=== PATIENT | female | born 1960 | race Caucasian/White ===

== ENCOUNTER 2020-04-27 06:26 | Inpatient (IN) ==
[2020-04-27] MEDS ORDERED: FUROSEMIDE 40 MG/4 ML VIAL IV STA (07:22)
[2020-04-27 07:56] LABS: Bilirubin,Total 0.7 MG/DL (0.2-1.0); Calcium 8.1 MG/DL (8.5-10.1); Potassium 3.4 MMOL/L (3.5-5.1); Total Protein 6.7 G/DL (6.4-8.3)
[2020-04-27 08:05] LABS: Ferritin 737.5 ng/ml (8-252)
[2020-04-27] MEDS: ZINC GLUCONATE 50 MG TABLET PO SCH (08:46)
[2020-04-27] MEDS: CHOLECALCIFEROL 1,000 UNIT TABLET PO SCH (08:46)
[2020-04-27] MEDS: ASCORBIC ACID 500 MG TABLET PO SCH ×2 (08:46→20:41)
[2020-04-27] MEDS: cefTRIAXone 1,000 MG in SYRINGE 1 EACH IV SCH (08:47)
[2020-04-27] MEDS: FAMOTIDINE 20 MG/2 ML VIAL IV SCH ×2 (08:48→20:42)
[2020-04-27] MEDS: ENOXAPARIN 60 MG/0.6 ML SYRINGE SUBCUT SCH ×2 (08:49→21:18)
[2020-04-27] MEDS: AZITHROMYCIN INJ 500 MG in SODIUM CHLORIDE 0.9% 250 ML IV SCH (08:51)
[2020-04-27] MEDS: methylPREDNISolone SOD SUC 40 MG/1 ML VIAL IV SCH ×3 (08:58→20:55)
[2020-04-27 09:12] LABS: ABG Base Excess 1.8 MMOL/L (-2.5-2.5); ABG Oxygen Saturation 98.3 % (95-100); ABG PCO2 44.5 MM HG (35-48); ABG PH 7.393 (7.35-7.45); ABG TCO2 23.7 MMOL/L (23-27)
[2020-04-27] MEDS ORDERED: MAGNESIUM SULF RIDER 4 GM in PREMIX 1 EACH IV PRN (10:20)
[2020-04-27] MEDS ORDERED: MAGNESIUM SULF RIDER 2 GM in PREMIX 1 EACH IV PRN (10:20)
[2020-04-27 13:51] LABS: Basophils % 0.1 % (0.0-0.8); Hematocrit 37.1 VOL% (35.7-47.0); Hemoglobin 12.4 GM/DL (12.0-16.0); Immature Granulocytes % 1.6 %; Immature Granulocytes Absolute 0.19 #; Lymphocytes % 8.1 % (21.3-54.2); Mean Corpuscular HGB Conc 33.4 GM/DL (32-36); Mean Corpuscular Volume 87.1 FL (87-102); Mean Platelet Volume 9.2 FL (9.6-12.0); Neutrophils % 87.2 % (38.7-73.9); Platelet Count 204 T/CUMM (130-400); Red Blood Count 4.26 MC/CUMM (3.8-5.5); Red Cell Distribution Width 13.4 % (9.3-17.3); White Blood Count 12.2 T/CUMM (4-12)
[2020-04-27] MEDS: POTASSIUM CHLORIDE 20 MEQ/15 ML UDCUP PER TUBE PRN ×3 (14:17→20:41)
[2020-04-28] MEDS: methylPREDNISolone SOD SUC 40 MG/1 ML VIAL IV SCH ×4 (03:05→20:52)
[2020-04-28 04:17] LABS: Basophils % 0.1 % (0.0-0.8); Hematocrit 37.2 VOL% (35.7-47.0); Hemoglobin 12.5 GM/DL (12.0-16.0); Immature Granulocytes % 1.5 %; Immature Granulocytes Absolute 0.15 #; Lymphocytes % 9.6 % (21.3-54.2); Mean Corpuscular HGB Conc 33.6 GM/DL (32-36); Mean Corpuscular Volume 87.7 FL (87-102); Mean Platelet Volume 9.7 FL (9.6-12.0); Monocytes % 3.4 % (1.7-12.7); Neutrophils % 85.4 % (38.7-73.9); Platelet Count 231 T/CUMM (130-400); Red Blood Count 4.24 MC/CUMM (3.8-5.5); Red Cell Distribution Width 13.3 % (9.3-17.3); White Blood Count 9.9 T/CUMM (4-12)
[2020-04-28 04:18] LABS: Albumin 2.7 G/DL (3.4-5.0); Bilirubin,Total 0.8 MG/DL (0.2-1.0); Calcium 8.2 MG/DL (8.5-10.1); Ferritin 684.9 ng/ml (8-252); Osmolality,Calculated 291.8 MOS/KG (273-304); Potassium 3.8 MMOL/L (3.5-5.1); Total Protein 6.3 G/DL (6.4-8.3)
[2020-04-28 04:29] LABS: ABG Base Excess 2.6 MMOL/L (-2.5-2.5); ABG Oxygen Saturation 95.9 % (95-100); ABG PCO2 36.1 MM HG (35-48); ABG PH 7.476 (7.35-7.45); ABG PO2 78.4 MM HG (80-95); ABG TCO2 27.1 MMOL/L (23-27); Allen Test Positive; Pt O2 Delivery Device Ventilator
[2020-04-28] MEDS: FAMOTIDINE 20 MG/2 ML VIAL IV SCH ×2 (07:19→20:53)
[2020-04-28] MEDS: cefTRIAXone 1,000 MG in SYRINGE 1 EACH IV SCH (07:19)
[2020-04-28] MEDS: AZITHROMYCIN INJ 500 MG in SODIUM CHLORIDE 0.9% 250 ML IV SCH (07:23)
[2020-04-28] MEDS: POTASSIUM CHLORIDE 20 MEQ/15 ML UDCUP PER TUBE PRN (07:28)
[2020-04-28] MEDS: ENOXAPARIN 60 MG/0.6 ML SYRINGE SUBCUT SCH ×2 (07:30→20:53)
[2020-04-28] MEDS: CHOLECALCIFEROL 1,000 UNIT TABLET PO SCH (08:03)
[2020-04-28] MEDS: ASCORBIC ACID 500 MG TABLET PO SCH ×2 (08:03→20:55)
[2020-04-28] MEDS: ZINC GLUCONATE 50 MG TABLET PO SCH (08:03)
[2020-04-28] MEDS ORDERED: GLUCAGON 1 MG VIAL IM PRN (08:54)
[2020-04-28] MEDS ORDERED: DEXTROSE 50% 25 GM/50 ML VIAL IV PRN (08:54)
[2020-04-28] MEDS: INSULIN REGULAR 100 UNIT/ML SUBCUT SCH ×2 (12:07→18:09)
[2020-04-28] MEDS: MIDAZOLAM 100 MG in SODIUM CHLORIDE 0.9% 80 ML IV PRN (20:47)
[2020-04-28] MEDS: ALBUTEROL INHALER 18 GM INH SCH (22:17)
[2020-04-29] MEDS: INSULIN REGULAR 100 UNIT/ML SUBCUT SCH ×4 (00:34→17:53)
[2020-04-29] MEDS: ALBUTEROL INHALER 18 GM INH SCH ×4 (00:56→20:15)
[2020-04-29] MEDS: methylPREDNISolone SOD SUC 40 MG/1 ML VIAL IV SCH ×4 (02:41→21:37)
[2020-04-29 04:04] LABS: Basophils % 0.2 % (0.0-0.8); Hematocrit 37.5 VOL% (35.7-47.0); Hemoglobin 12.5 GM/DL (12.0-16.0); Immature Granulocytes % 3.2 %; Immature Granulocytes Absolute 0.27 #; Lymphocytes # 1.1 10*3/uL (1.4-4.0); Lymphocytes % 12.7 % (21.3-54.2); Mean Corpuscular HGB Conc 33.3 GM/DL (32-36); Mean Corpuscular Volume 87.6 FL (87-102); Mean Platelet Volume 10.2 FL (9.6-12.0); Monocytes % 4.8 % (1.7-12.7); Neutrophils % 79.1 % (38.7-73.9); Platelet Count 227 T/CUMM (130-400); Red Blood Count 4.28 MC/CUMM (3.8-5.5); Red Cell Distribution Width 13.1 % (9.3-17.3); White Blood Count 8.4 T/CUMM (4-12)
[2020-04-29 04:08] LABS: Allen Test Positive; Pt O2 Delivery Device Ventilator
[2020-04-29 04:16] LABS: ABG Base Excess 2.7 MMOL/L (-2.5-2.5); ABG HCO3 26.8 MMOL/L (20-26); ABG Oxygen Saturation 99.3 % (95-100); ABG PCO2 41.3 MM HG (35-48); ABG PH 7.427 (7.35-7.45); ABG TCO2 23.9 MMOL/L (23-27)
[2020-04-29 04:39] LABS: Calcium 8.1 MG/DL (8.5-10.1); Osmolality,Calculated 294.8 MOS/KG (273-304); Potassium 5.1 MMOL/L (3.5-5.1)
[2020-04-29 04:40] LABS: Band Neutrophils 1 % (0-10); Lymphocytes 8 % (20-55); Metamyelocytes 1 %; Segmented Neutrophils 89 % (50-85); Total Cells Counted 100
[2020-04-29 04:41] LABS: Platelet Estimate Normal
[2020-04-29] MEDS: MIDAZOLAM 100 MG in SODIUM CHLORIDE 0.9% 80 ML IV PRN (07:50)
[2020-04-29] MEDS: FAMOTIDINE 20 MG/2 ML VIAL IV SCH ×2 (08:10→21:35)
[2020-04-29] MEDS: cefTRIAXone 1,000 MG in SYRINGE 1 EACH IV SCH (08:11)
[2020-04-29] MEDS: AZITHROMYCIN INJ 500 MG in SODIUM CHLORIDE 0.9% 250 ML IV SCH (08:12)
[2020-04-29] MEDS: ENOXAPARIN 60 MG/0.6 ML SYRINGE SUBCUT SCH ×2 (08:14→21:35)
[2020-04-29] MEDS: CHOLECALCIFEROL 1,000 UNIT TABLET PO SCH (08:15)
[2020-04-29] MEDS: ZINC GLUCONATE 50 MG TABLET PO SCH (08:15)
[2020-04-29] MEDS: ASCORBIC ACID 500 MG TABLET PO SCH ×2 (08:15→21:35)
[2020-04-29] MEDS ORDERED: INFLUENZA VIRUS VACCINE 0.5 ML SYRINGE IM ONE (09:42)
[2020-04-29] MEDS: amLODIPine 10 MG TABLET PER TUBE SCH (17:53)
[2020-04-30] MEDS: INSULIN REGULAR 100 UNIT/ML SUBCUT SCH ×4 (00:30→17:56)
[2020-04-30] MEDS: ALBUTEROL INHALER 18 GM INH SCH ×4 (01:13→18:03)
[2020-04-30] MEDS: methylPREDNISolone SOD SUC 40 MG/1 ML VIAL IV SCH ×4 (02:19→20:52)
[2020-04-30 03:19] LABS: ABG Base Excess 3.3 MMOL/L (-2.5-2.5); ABG HCO3 26.7 MMOL/L (20-26); ABG PCO2 36.3 MM HG (35-48); ABG PH 7.484 (7.35-7.45); ABG PO2 123.2 MM HG (80-95); ABG TCO2 27.8 MMOL/L (23-27); Allen Test Positive; Pt O2 Delivery Device Ventilator
[2020-04-30 05:56] LABS: Basophils % 0.5 % (0.0-0.8); Hematocrit 38.4 VOL% (35.7-47.0); Immature Granulocytes % 5.3 %; Lymphocytes % 13.7 % (21.3-54.2); Mean Corpuscular HGB Conc 33.9 GM/DL (32-36); Mean Corpuscular Volume 85.3 FL (87-102); Mean Platelet Volume 9.3 FL (9.6-12.0); Monocytes % 5.3 % (1.7-12.7); Neutrophils % 75.2 % (38.7-73.9); Platelet Count 276 T/CUMM (130-400); Red Cell Distribution Width 12.7 % (9.3-17.3); White Blood Count 7.5 T/CUMM (4-12)
[2020-04-30 06:29] LABS: Calcium 8.2 MG/DL (8.5-10.1); Osmolality,Calculated 297.7 MOS/KG (273-304); Potassium 3.7 MMOL/L (3.5-5.1)
[2020-04-30 07:55] LABS: Anisocytosis 1+; Band Neutrophils 7 % (0-10); Lymphocytes 12 % (20-55); Platelet Estimate Normal; Segmented Neutrophils 75 % (50-85); Smudge Cells Few; Total Cells Counted 100
[2020-04-30] MEDS: amLODIPine 10 MG TABLET PER TUBE SCH (08:56)
[2020-04-30] MEDS: CHOLECALCIFEROL 1,000 UNIT TABLET PO SCH (08:57)
[2020-04-30] MEDS: FAMOTIDINE 20 MG/2 ML VIAL IV SCH ×2 (08:57→20:52)
[2020-04-30] MEDS: ENOXAPARIN 60 MG/0.6 ML SYRINGE SUBCUT SCH ×2 (08:57→20:52)
[2020-04-30] MEDS: ZINC GLUCONATE 50 MG TABLET PO SCH (08:57)
[2020-04-30] MEDS: ASCORBIC ACID 500 MG TABLET PO SCH ×2 (08:57→20:52)
[2020-04-30] MEDS: cefTRIAXone 1,000 MG in SYRINGE 1 EACH IV SCH (08:58)
[2020-04-30] MEDS: AZITHROMYCIN INJ 500 MG in SODIUM CHLORIDE 0.9% 250 ML IV SCH (08:59)
[2020-04-30] MEDS ORDERED: INFLUENZA VIRUS VACCINE 0.5 ML SYRINGE IM ONE (09:00)
[2020-04-30] MEDS: lisinopriL 5 MG TABLET PO SCH (13:01)
[2020-05-01] MEDS: ALBUTEROL INHALER 18 GM INH SCH ×4 (00:30→21:33)
[2020-05-01] MEDS: INSULIN REGULAR 100 UNIT/ML SUBCUT SCH ×4 (00:30→18:25)
[2020-05-01] MEDS: methylPREDNISolone SOD SUC 40 MG/1 ML VIAL IV SCH ×4 (03:12→20:45)
[2020-05-01 04:47] LABS: Basophils % 0.1 % (0.0-0.8); Hematocrit 36.4 VOL% (35.7-47.0); Hemoglobin 12.4 GM/DL (12.0-16.0); Immature Granulocytes % 5.7 %; Immature Granulocytes Absolute 0.41 #; Lymphocytes # 0.6 10*3/uL (1.4-4.0); Lymphocytes % 8.6 % (21.3-54.2); Mean Corpuscular HGB Conc 34.1 GM/DL (32-36); Mean Corpuscular Volume 85.2 FL (87-102); Mean Platelet Volume 9.4 FL (9.6-12.0); Monocytes % 5.5 % (1.7-12.7); Neutrophils % 80.1 % (38.7-73.9); Platelet Count 258 T/CUMM (130-400); Red Blood Count 4.27 MC/CUMM (3.8-5.5); Red Cell Distribution Width 12.5 % (9.3-17.3); White Blood Count 7.3 T/CUMM (4-12)
[2020-05-01 05:08] LABS: ABG Base Excess 4.4 MMOL/L (-2.5-2.5); ABG HCO3 28.4 MMOL/L (20-26); ABG Oxygen Saturation 98.9 % (95-100); ABG PCO2 37.5 MM HG (35-48); ABG TCO2 24.5 MMOL/L (23-27); Allen Test Positive; Pt O2 Delivery Device Ventilator
[2020-05-01 05:26] LABS: Calcium 8.1 MG/DL (8.5-10.1); Osmolality,Calculated 298.7 MOS/KG (273-304); Potassium 3.7 MMOL/L (3.5-5.1)
[2020-05-01 05:37] LABS: Band Neutrophils 9 % (0-10); Lymphocytes 5 % (20-55); Myelocytes 1 %; Platelet Estimate Normal; Segmented Neutrophils 79 % (50-85); Total Cells Counted 100
[2020-05-01 05:38] LABS: Anisocytosis Slight
[2020-05-01] MEDS: CHOLECALCIFEROL 1,000 UNIT TABLET PO SCH (08:02)
[2020-05-01] MEDS: ZINC GLUCONATE 50 MG TABLET PO SCH (08:02)
[2020-05-01] MEDS: ASCORBIC ACID 500 MG TABLET PO SCH ×2 (08:02→20:47)
[2020-05-01] MEDS: amLODIPine 10 MG TABLET PER TUBE SCH (08:03)
[2020-05-01] MEDS: FAMOTIDINE 20 MG/2 ML VIAL IV SCH ×2 (08:03→20:44)
[2020-05-01] MEDS: lisinopriL 5 MG TABLET PO SCH (08:03)
[2020-05-01] MEDS: POTASSIUM CHLORIDE 20 MEQ/15 ML UDCUP PER TUBE PRN (08:04)
[2020-05-01] MEDS: cefTRIAXone 1,000 MG in SYRINGE 1 EACH IV SCH (08:04)
[2020-05-01] MEDS: AZITHROMYCIN INJ 500 MG in SODIUM CHLORIDE 0.9% 250 ML IV SCH (08:05)
[2020-05-01] MEDS: ENOXAPARIN 60 MG/0.6 ML SYRINGE SUBCUT SCH ×2 (08:05→20:47)
[2020-05-01] MEDS: hydrALAZINE 20 MG/1 ML VIAL IV PRN ×2 (15:02→23:48)
[2020-05-01] MEDS: FLUCONAZOLE INJ 100 MG in IV BAG 1 EACH IV SCH (18:25)
[2020-05-01] MEDS: OLMESARTAN 20 MG TABLET PO SCH (20:44)
[2020-05-01] MEDS: INSULIN GLARGINE 100 UNIT/ML SUBCUT SCH (20:46)
[2020-05-02] MEDS: INSULIN REGULAR 100 UNIT/ML SUBCUT SCH ×4 (00:24→17:42)
[2020-05-02] MEDS: ALBUTEROL INHALER 18 GM INH SCH ×4 (00:25→18:27)
[2020-05-02] MEDS: methylPREDNISolone SOD SUC 40 MG/1 ML VIAL IV SCH ×3 (02:18→20:54)
[2020-05-02 03:19] LABS: Basophils % 0.3 % (0.0-0.8); Hematocrit 36.5 VOL% (35.7-47.0); Hemoglobin 12.5 GM/DL (12.0-16.0); Immature Granulocytes % 7.8 %; Immature Granulocytes Absolute 0.59 #; Lymphocytes # 0.8 10*3/uL (1.4-4.0); Lymphocytes % 10.8 % (21.3-54.2); Mean Corpuscular HGB Conc 34.2 GM/DL (32-36); Mean Corpuscular Volume 85.1 FL (87-102); Mean Platelet Volume 9.3 FL (9.6-12.0); Monocytes % 6.2 % (1.7-12.7); Neutrophils % 74.9 % (38.7-73.9); Platelet Count 233 T/CUMM (130-400); Red Blood Count 4.29 MC/CUMM (3.8-5.5); Red Cell Distribution Width 12.6 % (9.3-17.3); White Blood Count 7.6 T/CUMM (4-12)
[2020-05-02 03:40] LABS: Potassium 3.9 MMOL/L (3.5-5.1)
[2020-05-02 03:47] LABS: Lymphocytes 11 % (20-55); Platelet Estimate Normal; Segmented Neutrophils 77 % (50-85); Total Cells Counted 100
[2020-05-02 05:03] LABS: ABG Base Excess 3.9 MMOL/L (-2.5-2.5); ABG HCO3 26.1 MMOL/L (20-26); ABG PCO2 31.8 MM HG (35-48); ABG PH 7.532 (7.35-7.45); ABG PO2 107.6 MM HG (80-95); ABG TCO2 27.1 MMOL/L (23-27); Allen Test Positive; Pt O2 Delivery Device Ventilator
[2020-05-02] MEDS: POTASSIUM CHLORIDE 20 MEQ/15 ML UDCUP PER TUBE PRN (06:18)
[2020-05-02] MEDS: ASCORBIC ACID 500 MG TABLET PO SCH ×2 (08:50→20:53)
[2020-05-02] MEDS: CHOLECALCIFEROL 1,000 UNIT TABLET PO SCH (08:50)
[2020-05-02] MEDS: cefTRIAXone 1,000 MG in SYRINGE 1 EACH IV SCH (08:51)
[2020-05-02] MEDS: FAMOTIDINE 20 MG/2 ML VIAL IV SCH ×2 (08:51→20:53)
[2020-05-02] MEDS: AZITHROMYCIN INJ 500 MG in SODIUM CHLORIDE 0.9% 250 ML IV SCH (08:52)
[2020-05-02] MEDS: OLMESARTAN 20 MG TABLET PO SCH (08:53)
[2020-05-02] MEDS: ZINC GLUCONATE 50 MG TABLET PO SCH (08:53)
[2020-05-02] MEDS: amLODIPine 10 MG TABLET PER TUBE SCH (08:53)
[2020-05-02] MEDS: ENOXAPARIN 60 MG/0.6 ML SYRINGE SUBCUT SCH ×2 (08:53→20:53)
[2020-05-02] MEDS ORDERED: FUROSEMIDE 40 MG/4 ML VIAL IV ONE (09:02)
[2020-05-02] MEDS ORDERED: OLMESARTAN 5 MG TABLET PO ONE (09:09)
[2020-05-02] MEDS: FLUCONAZOLE INJ 100 MG in IV BAG 1 EACH IV SCH (17:12)
[2020-05-02] MEDS: MIDAZOLAM 100 MG in SODIUM CHLORIDE 0.9% 80 ML IV PRN (19:35)
[2020-05-02] MEDS: ACETAMINOPHEN 325 MG TABLET PO PRN (20:00)
[2020-05-02] MEDS: INSULIN GLARGINE 100 UNIT/ML SUBCUT SCH (20:53)
[2020-05-03] MEDS: INSULIN REGULAR 100 UNIT/ML SUBCUT SCH ×4 (00:40→17:58)
[2020-05-03] MEDS: ALBUTEROL INHALER 18 GM INH SCH ×4 (01:45→20:40)
[2020-05-03 03:54] LABS: Allen Test Positive; Pt O2 Delivery Device Ventilator
[2020-05-03 03:55] LABS: ABG Base Excess 2.3 MMOL/L (-2.5-2.5); ABG HCO3 25.6 MMOL/L (20-26); ABG Oxygen Saturation 98.5 % (95-100); ABG PCO2 35.5 MM HG (35-48); ABG PH 7.476 (7.35-7.45); ABG PO2 142.1 MM HG (80-95); ABG TCO2 26.7 MMOL/L (23-27)
[2020-05-03 05:05] LABS: Basophils % 0.2 % (0.0-0.8); Hematocrit 36.8 VOL% (35.7-47.0); Hemoglobin 12.5 GM/DL (12.0-16.0); Immature Granulocytes % 8.2 %; Lymphocytes # 0.8 10*3/uL (1.4-4.0); Lymphocytes % 7.1 % (21.3-54.2); Mean Corpuscular Volume 84.2 FL (87-102); Mean Platelet Volume 9.5 FL (9.6-12.0); Monocytes % 5.1 % (1.7-12.7); Neutrophils % 79.4 % (38.7-73.9); Platelet Count 248 T/CUMM (130-400); Red Blood Count 4.37 MC/CUMM (3.8-5.5); Red Cell Distribution Width 12.4 % (9.3-17.3)
[2020-05-03 05:20] LABS: Calcium 8.1 MG/DL (8.5-10.1); Osmolality,Calculated 296.3 MOS/KG (273-304); Potassium 3.7 MMOL/L (3.5-5.1)
[2020-05-03] MEDS: POTASSIUM CHLORIDE 20 MEQ/15 ML UDCUP PER TUBE PRN (05:53)
[2020-05-03 05:57] LABS: Band Neutrophils 1 % (0-10); Hypochromasia 1+; Lymphocytes 4 % (20-55); Microcytosis Slight; Myelocytes 1 %; Segmented Neutrophils 89 % (50-85); Total Cells Counted 100
[2020-05-03 05:58] LABS: Platelet Estimate Normal
[2020-05-03] MEDS: amLODIPine 10 MG TABLET PER TUBE SCH (08:19)
[2020-05-03] MEDS: CHOLECALCIFEROL 1,000 UNIT TABLET PO SCH (08:19)
[2020-05-03] MEDS: OLMESARTAN 20 MG TABLET PO SCH (08:20)
[2020-05-03] MEDS: ENOXAPARIN 60 MG/0.6 ML SYRINGE SUBCUT SCH ×2 (08:20→20:38)
[2020-05-03] MEDS: ZINC GLUCONATE 50 MG TABLET PO SCH (08:20)
[2020-05-03] MEDS: methylPREDNISolone SOD SUC 40 MG/1 ML VIAL IV SCH ×2 (08:20→20:38)
[2020-05-03] MEDS: FAMOTIDINE 20 MG/2 ML VIAL IV SCH ×2 (08:20→20:38)
[2020-05-03] MEDS: ASCORBIC ACID 500 MG TABLET PO SCH ×2 (08:21→20:36)
[2020-05-03] MEDS: cefTRIAXone 1,000 MG in SYRINGE 1 EACH IV SCH (08:21)
[2020-05-03] MEDS: AZITHROMYCIN INJ 500 MG in SODIUM CHLORIDE 0.9% 250 ML IV SCH (08:21)
[2020-05-03] MEDS: ALPRAZolam 0.25 MG TABLET PO PRN ×2 (15:36→20:37)
[2020-05-03] MEDS: FLUCONAZOLE INJ 100 MG in IV BAG 1 EACH IV SCH (16:23)
[2020-05-03] MEDS: INSULIN GLARGINE 100 UNIT/ML SUBCUT SCH (20:37)
[2020-05-04] MEDS: INSULIN REGULAR 100 UNIT/ML SUBCUT SCH ×5 (01:36→23:46)
[2020-05-04] MEDS: ALBUTEROL INHALER 18 GM INH SCH ×4 (01:36→20:15)
[2020-05-04 04:37] LABS: Basophils % 0.2 % (0.0-0.8); Hematocrit 34.1 VOL% (35.7-47.0); Hemoglobin 11.4 GM/DL (12.0-16.0); Immature Granulocytes % 6.6 %; Lymphocytes # 0.9 10*3/uL (1.4-4.0); Lymphocytes % 7.8 % (21.3-54.2); Mean Corpuscular HGB Conc 33.4 GM/DL (32-36); Mean Corpuscular Volume 85.9 FL (87-102); Mean Platelet Volume 9.6 FL (9.6-12.0); Monocytes % 4.8 % (1.7-12.7); Neutrophils % 80.6 % (38.7-73.9); Platelet Count 203 T/CUMM (130-400); Red Blood Count 3.97 MC/CUMM (3.8-5.5); Red Cell Distribution Width 12.5 % (9.3-17.3); White Blood Count 12.1 T/CUMM (4-12)
[2020-05-04 04:41] LABS: ABG Base Excess 3.3 MMOL/L (-2.5-2.5); ABG HCO3 27.8 MMOL/L (20-26); ABG Oxygen Saturation 94.9 % (95-100); ABG PCO2 41.9 MM HG (35-48); ABG PO2 77.4 MM HG (80-95); ABG TCO2 29.1 MMOL/L (23-27); Allen Test Positive; Pt O2 Delivery Device Venturi Mask
[2020-05-04 04:55] LABS: Potassium 4.5 MMOL/L (3.5-5.1)
[2020-05-04 05:07] LABS: Band Neutrophils 1 % (0-10); Hypochromasia 1+; Lymphocytes 10 % (20-55); Segmented Neutrophils 83 % (50-85); Total Cells Counted 100
[2020-05-04 05:08] LABS: Microcytosis Slight; Ovalocytes Slight; Platelet Estimate Normal
[2020-05-04] MEDS: CHOLECALCIFEROL 1,000 UNIT TABLET PO SCH (08:08)
[2020-05-04] MEDS: ENOXAPARIN 60 MG/0.6 ML SYRINGE SUBCUT SCH ×2 (08:08→20:14)
[2020-05-04] MEDS: ZINC GLUCONATE 50 MG TABLET PO SCH (08:08)
[2020-05-04] MEDS: ASCORBIC ACID 500 MG TABLET PO SCH ×2 (08:08→20:14)
[2020-05-04] MEDS: methylPREDNISolone SOD SUC 40 MG/1 ML VIAL IV SCH ×2 (08:08→20:13)
[2020-05-04] MEDS: amLODIPine 10 MG TABLET PER TUBE SCH (08:08)
[2020-05-04] MEDS: OLMESARTAN 20 MG TABLET PO SCH (08:08)
[2020-05-04] MEDS: cefTRIAXone 1,000 MG in SYRINGE 1 EACH IV SCH (08:09)
[2020-05-04] MEDS: FAMOTIDINE 20 MG/2 ML VIAL IV SCH ×2 (08:09→20:13)
[2020-05-04] MEDS: AZITHROMYCIN INJ 500 MG in SODIUM CHLORIDE 0.9% 250 ML IV SCH (08:13)
[2020-05-04] MEDS: FLUCONAZOLE INJ 100 MG in IV BAG 1 EACH IV SCH (18:12)
[2020-05-04] MEDS: INSULIN GLARGINE 100 UNIT/ML SUBCUT SCH (20:14)
[2020-05-04] MEDS: ALPRAZolam 0.25 MG TABLET PO PRN (20:14)
[2020-05-04] MEDS: FLUTICASONE 50 MCG NASAL SPRAY 16 GM BOTTLE BOTH NARES SCH (20:15)
[2020-05-05] MEDS: ALBUTEROL INHALER 18 GM INH SCH ×4 (00:02→20:22)
[2020-05-05 03:50] LABS: Basophils % 0.2 % (0.0-0.8); Hematocrit 31.8 VOL% (35.7-47.0); Hemoglobin 10.7 GM/DL (12.0-16.0); Immature Granulocytes % 4.9 %; Immature Granulocytes Absolute 0.61 #; Lymphocytes % 7.9 % (21.3-54.2); Mean Corpuscular HGB Conc 33.6 GM/DL (32-36); Mean Corpuscular Volume 85.7 FL (87-102); Mean Platelet Volume 9.7 FL (9.6-12.0); Monocytes % 5.2 % (1.7-12.7); Neutrophils % 81.8 % (38.7-73.9); Platelet Count 192 T/CUMM (130-400); Red Blood Count 3.71 MC/CUMM (3.8-5.5); Red Cell Distribution Width 12.3 % (9.3-17.3); White Blood Count 12.4 T/CUMM (4-12)
[2020-05-05 04:05] LABS: Calcium 7.9 MG/DL (8.5-10.1); Osmolality,Calculated 286.3 MOS/KG (273-304); Potassium 4.4 MMOL/L (3.5-5.1)
[2020-05-05 04:15] LABS: Hypochromasia 1+; Lymphocytes 6 % (20-55); Platelet Estimate Adequate; Segmented Neutrophils 88 % (50-85); Total Cells Counted 100
[2020-05-05 04:16] LABS: Microcytosis Slight; Ovalocytes Slight
[2020-05-05 04:48] LABS: ABG Base Excess 5.4 MMOL/L (-2.5-2.5); ABG HCO3 29.3 MMOL/L (20-26); ABG Oxygen Saturation 97.9 % (95-100); ABG PCO2 40.1 MM HG (35-48); ABG PH 7.481 (7.35-7.45); ABG PO2 110.6 MM HG (80-95); ABG TCO2 30.5 MMOL/L (23-27)
[2020-05-05] MEDS: INSULIN REGULAR 100 UNIT/ML SUBCUT SCH ×3 (05:35→19:39)
[2020-05-05] MEDS: FAMOTIDINE 20 MG/2 ML VIAL IV SCH ×2 (09:25→20:22)
[2020-05-05] MEDS: AZITHROMYCIN INJ 500 MG in SODIUM CHLORIDE 0.9% 250 ML IV SCH (09:25)
[2020-05-05] MEDS: FLUTICASONE 50 MCG NASAL SPRAY 16 GM BOTTLE BOTH NARES SCH ×2 (09:25→20:22)
[2020-05-05] MEDS: ENOXAPARIN 60 MG/0.6 ML SYRINGE SUBCUT SCH (09:30)
[2020-05-05] MEDS: cefTRIAXone 1,000 MG in SYRINGE 1 EACH IV SCH (09:30)
[2020-05-05] MEDS: methylPREDNISolone SOD SUC 40 MG/1 ML VIAL IV SCH ×2 (09:30→20:22)
[2020-05-05] MEDS: ZINC GLUCONATE 50 MG TABLET PO SCH (10:00)
[2020-05-05] MEDS: OLMESARTAN 20 MG TABLET PO SCH (10:00)
[2020-05-05] MEDS: CHOLECALCIFEROL 1,000 UNIT TABLET PO SCH (10:00)
[2020-05-05] MEDS: ASCORBIC ACID 500 MG TABLET PO SCH ×2 (10:00→21:51)
[2020-05-05] MEDS: amLODIPine 10 MG TABLET PER TUBE SCH (10:00)
[2020-05-05] MEDS ORDERED: MORPHINE 4 MG/1 ML VIAL IV SCH (12:07)
[2020-05-05] MEDS ORDERED: MORPHINE 4 MG/1 ML VIAL IV PRN (12:35)
[2020-05-05] MEDS ORDERED: diphenhydrAMINE CAP 50 MG CAPSULE PO ONE (13:02)
[2020-05-05 16:12] LABS: Basophils % 0.2 % (0.0-0.8); Hematocrit 29.2 VOL% (35.7-47.0); Hemoglobin 9.9 GM/DL (12.0-16.0); Immature Granulocytes % 4.6 %; Immature Granulocytes Absolute 0.61 #; Lymphocytes # 0.9 10*3/uL (1.4-4.0); Lymphocytes % 6.5 % (21.3-54.2); Mean Corpuscular HGB Conc 33.9 GM/DL (32-36); Mean Corpuscular Volume 85.9 FL (87-102); Mean Platelet Volume 9.6 FL (9.6-12.0); Monocytes % 4.8 % (1.7-12.7); Neutrophils % 83.9 % (38.7-73.9); Platelet Count 206 T/CUMM (130-400); Red Cell Distribution Width 12.3 % (9.3-17.3); White Blood Count 13.3 T/CUMM (4-12)
[2020-05-05 16:29] LABS: Albumin 2.3 G/DL (3.4-5.0); Bilirubin,Total 0.6 MG/DL (0.2-1.0); Calcium 7.7 MG/DL (8.5-10.1); Osmolality,Calculated 282.7 MOS/KG (273-304); Potassium 4.5 MMOL/L (3.5-5.1); Total Protein 5.1 G/DL (6.4-8.3)
[2020-05-05 17:37] LABS: Anisocytosis Slight; Atypical Lymphocytes Few; Band Neutrophils 3 % (0-10); Lymphocytes 8 % (20-55); Metamyelocytes 2 %; Microcytosis Slight; Nucleated Red Blood Cells 1 (0-5); Platelet Estimate Normal; Segmented Neutrophils 86 % (50-85); Total Cells Counted 100
[2020-05-05] MEDS ORDERED: SODIUM CHLORIDE 0.9% 250 ML IV ONE (19:38)
[2020-05-05 20:51] LABS: Hematocrit 25.2 VOL% (35.7-47.0); Hemoglobin 8.5 GM/DL (12.0-16.0)
[2020-05-05] MEDS: INSULIN GLARGINE 100 UNIT/ML SUBCUT SCH (22:07)
[2020-05-05] MEDS: ACETAMINOPHEN 325 MG TABLET PO PRN (22:48)
[2020-05-05 22:51] LABS: Hemoglobin 8.7 GM/DL (12.0-16.0)
[2020-05-05] MEDS: ONDANSETRON 4 MG/2 ML VIAL IV PRN (23:16)
[2020-05-06 01:10] LABS: Hematocrit 24.9 VOL% (35.7-47.0); Hemoglobin 8.5 GM/DL (12.0-16.0)
[2020-05-06] MEDS: FLUCONAZOLE INJ 100 MG in IV BAG 1 EACH IV SCH ×2 (01:11→18:10)
[2020-05-06] MEDS: INSULIN REGULAR 100 UNIT/ML SUBCUT SCH ×4 (01:12→17:55)
[2020-05-06] MEDS: ALBUTEROL INHALER 18 GM INH SCH ×4 (01:12→17:55)
[2020-05-06] MEDS ORDERED: NOREPINEPHRINE 4 MG/4 ML VIAL IV ONE (01:32)
[2020-05-06] MEDS: NOREPINEPHRINE 8 MG in SODIUM CHLORIDE 0.9% 242 ML IV PRN (01:43)
[2020-05-06 05:57] LABS: Hematocrit 26.6 VOL% (35.7-47.0); Hemoglobin 9.2 GM/DL (12.0-16.0)
[2020-05-06 06:05] LABS: Basophils # 0.1 10*3/uL (0.0-0.2); Basophils % 0.2 % (0.0-0.8); Hematocrit 27.1 VOL% (35.7-47.0); Hemoglobin 9.2 GM/DL (12.0-16.0); Immature Granulocytes % 3.9 %; Lymphocytes # 1.5 10*3/uL (1.4-4.0); Lymphocytes % 5.9 % (21.3-54.2); Mean Corpuscular HGB Conc 33.9 GM/DL (32-36); Mean Corpuscular Volume 87.1 FL (87-102); Mean Platelet Volume 10.1 FL (9.6-12.0); Monocytes % 5.7 % (1.7-12.7); NRBC # 0.02 10*3/uL; Neutrophils % 84.3 % (38.7-73.9); Red Blood Count 3.11 MC/CUMM (3.8-5.5); Red Cell Distribution Width 12.5 % (9.3-17.3)
[2020-05-06 06:06] LABS: Platelet Count 283 T/CUMM (130-400); White Blood Count 25.6 T/CUMM (4-12)
[2020-05-06 06:13] LABS: Calcium 7.9 MG/DL (8.5-10.1); Osmolality,Calculated 290.5 MOS/KG (273-304); Potassium 4.8 MMOL/L (3.5-5.1)
[2020-05-06 06:28] LABS: Hypochromasia 1+; Lymphocytes 1 % (20-55); Metamyelocytes 1 %; Microcytosis Slight; Myelocytes 1 %; Platelet Estimate Normal; Segmented Neutrophils 94 % (50-85); Total Cells Counted 100
[2020-05-06] MEDS ORDERED: HEPARIN/NACL 0.9% 2 UNITS/ML 2,000 ML IV ONE (08:40)
[2020-05-06] MEDS ORDERED: ceFAZolin 1,000 MG in SYRINGE 1 EACH IV ONE (08:49)
[2020-05-06] MEDS: ALPRAZolam 0.25 MG TABLET PO PRN (09:06)
[2020-05-06 09:41] LABS: Hematocrit 24.5 VOL% (35.7-47.0); Hemoglobin 8.4 GM/DL (12.0-16.0)
[2020-05-06] MEDS ORDERED: diphenhydrAMINE 50 MG/1 ML VIAL ONE (09:49)
[2020-05-06] MEDS ORDERED: HEPARIN/NACL 0.9% 2 UNITS/ML 1,000 ML IV ONE (10:01)
[2020-05-06] MEDS ORDERED: diphenhydrAMINE 50 MG/1 ML VIAL IV ONE (10:10)
[2020-05-06] MEDS: SODIUM CHLORIDE 0.45% 1,000 ML IV SCH (12:19)
[2020-05-06] MEDS: FAMOTIDINE 20 MG/2 ML VIAL IV SCH ×2 (12:19→20:35)
[2020-05-06] MEDS: amLODIPine 10 MG TABLET PER TUBE SCH (12:20)
[2020-05-06] MEDS: OLMESARTAN 20 MG TABLET PO SCH (12:20)
[2020-05-06] MEDS: methylPREDNISolone SOD SUC 40 MG/1 ML VIAL IV SCH ×2 (12:20→20:35)
[2020-05-06] MEDS: FLUTICASONE 50 MCG NASAL SPRAY 16 GM BOTTLE BOTH NARES SCH ×2 (12:20→20:35)
[2020-05-06] MEDS: ASCORBIC ACID 500 MG TABLET PO SCH ×2 (12:21→21:42)
[2020-05-06] MEDS: CHOLECALCIFEROL 1,000 UNIT TABLET PO SCH (12:21)
[2020-05-06] MEDS: ZINC GLUCONATE 50 MG TABLET PO SCH (12:21)
[2020-05-06] MEDS: ONDANSETRON 4 MG/2 ML VIAL IV PRN ×2 (13:36→17:40)
[2020-05-06 16:18] LABS: Hemoglobin 8.2 GM/DL (12.0-16.0)
[2020-05-06 16:34] LABS: INR 1.1; PT Patient Result 11.3 SECS (9.8-11.9); Partial Thromboplastin Time 20.7 SECS (23.9-33.8)
[2020-05-06] MEDS: INSULIN GLARGINE 100 UNIT/ML SUBCUT SCH (20:35)
[2020-05-06] MEDS ORDERED: PROMETHAZINE INJ 12.5 MG in SODIUM CHLORIDE 0.9% 50 ML IV ONE (21:05)
[2020-05-07] MEDS: FLUCONAZOLE INJ 100 MG in IV BAG 1 EACH IV SCH (00:15)
[2020-05-07] MEDS: INSULIN REGULAR 100 UNIT/ML SUBCUT SCH ×4 (00:32→17:43)
[2020-05-07] MEDS: ALBUTEROL INHALER 18 GM INH SCH ×4 (00:34→18:43)
[2020-05-07 00:54] LABS: Hematocrit 22.1 VOL% (35.7-47.0); Hemoglobin 7.4 GM/DL (12.0-16.0)
[2020-05-07 05:01] LABS: Basophils % 0.2 % (0.0-0.8); Hematocrit 22.1 VOL% (35.7-47.0); Hemoglobin 7.3 GM/DL (12.0-16.0); Immature Granulocytes % 1.7 %; Immature Granulocytes Absolute 0.41 #; Lymphocytes # 1.1 10*3/uL (1.4-4.0); Lymphocytes % 4.6 % (21.3-54.2); Mean Platelet Volume 10.3 FL (9.6-12.0); NRBC # 0.07 10*3/uL; Neutrophils % 87.5 % (38.7-73.9); Platelet Count 248 T/CUMM (130-400); Red Blood Count 2.51 MC/CUMM (3.8-5.5); Red Cell Distribution Width 12.9 % (9.3-17.3); White Blood Count 24.4 T/CUMM (4-12)
[2020-05-07 05:29] LABS: Calcium 8.2 MG/DL (8.5-10.1); Potassium 4.4 MMOL/L (3.5-5.1)
[2020-05-07 05:31] LABS: Lymphocytes 5 % (20-55); Platelet Estimate Normal; Segmented Neutrophils 95 % (50-85); Total Cells Counted 100
[2020-05-07 05:32] LABS: Hypochromasia Slight; Microcytosis Slight
[2020-05-07] MEDS: FAMOTIDINE 20 MG/2 ML VIAL IV SCH ×2 (08:40→20:53)
[2020-05-07] MEDS: methylPREDNISolone SOD SUC 40 MG/1 ML VIAL IV SCH ×2 (08:41→20:53)
[2020-05-07] MEDS: CHOLECALCIFEROL 1,000 UNIT TABLET PO SCH (08:41)
[2020-05-07] MEDS: FLUTICASONE 50 MCG NASAL SPRAY 16 GM BOTTLE BOTH NARES SCH ×2 (08:41→20:53)
[2020-05-07] MEDS: ZINC GLUCONATE 50 MG TABLET PO SCH (08:41)
[2020-05-07] MEDS: ASCORBIC ACID 500 MG TABLET PO SCH ×2 (08:41→20:53)
[2020-05-07] MEDS: OLMESARTAN 20 MG TABLET PO SCH (08:49)
[2020-05-07] MEDS: amLODIPine 10 MG TABLET PER TUBE SCH (08:49)
[2020-05-07] MEDS ORDERED: SODIUM CHLORIDE 0.9% 1,000 ML IV PRN (09:09)
[2020-05-07 09:55] LABS: Hematocrit 19.7 VOL% (35.7-47.0); Hemoglobin 6.7 GM/DL (12.0-16.0)
[2020-05-07] MEDS: SODIUM CHLORIDE 0.45% 1,000 ML IV SCH (10:02)
[2020-05-07] MEDS: NOREPINEPHRINE 8 MG in SODIUM CHLORIDE 0.9% 242 ML IV PRN (10:33)
[2020-05-07] MEDS: INSULIN GLARGINE 100 UNIT/ML SUBCUT SCH (20:53)
[2020-05-07] MEDS: ALPRAZolam 0.25 MG TABLET PO PRN (21:09)
[2020-05-07 21:32] LABS: Hematocrit 23.6 VOL% (35.7-47.0)
[2020-05-07 21:34] LABS: Hemoglobin 8.1 GM/DL (12.0-16.0)
[2020-05-08] MEDS: FLUCONAZOLE INJ 100 MG in IV BAG 1 EACH IV SCH (00:40)
[2020-05-08] MEDS: INSULIN REGULAR 100 UNIT/ML SUBCUT SCH ×4 (00:40→17:47)
[2020-05-08] MEDS: ALBUTEROL INHALER 18 GM INH SCH ×4 (00:40→18:09)
[2020-05-08 05:59] LABS: Calcium 8.1 MG/DL (8.5-10.1); Osmolality,Calculated 301.6 MOS/KG (273-304); Potassium 4.6 MMOL/L (3.5-5.1)
[2020-05-08 07:04] LABS: Basophils % 0.1 % (0.0-0.8); Hematocrit 23.4 VOL% (35.7-47.0); Hemoglobin 7.6 GM/DL (12.0-16.0); Immature Granulocytes % 2.3 %; Immature Granulocytes Absolute 0.37 #; Lymphocytes # 0.8 10*3/uL (1.4-4.0); Lymphocytes % 4.8 % (21.3-54.2); Mean Corpuscular HGB Conc 32.5 GM/DL (32-36); Mean Platelet Volume 11.6 FL (9.6-12.0); Monocytes % 5.5 % (1.7-12.7); NRBC # 0.06 10*3/uL; Neutrophils % 87.3 % (38.7-73.9); Red Blood Count 2.49 MC/CUMM (3.8-5.5); Red Cell Distribution Width 16.9 % (9.3-17.3)
[2020-05-08 07:05] LABS: Platelet Count 153 T/CUMM (130-400); White Blood Count 15.8 T/CUMM (4-12)
[2020-05-08 07:18] LABS: Band Neutrophils 1 % (0-10); Hypochromasia 1+; Lymphocytes 5 % (20-55); Microcytosis 1+; Platelet Estimate Adequate; Segmented Neutrophils 88 % (50-85); Total Cells Counted 100
[2020-05-08] MEDS ORDERED: SODIUM CHLORIDE 0.9% 1,000 ML IV PRN (07:26)
[2020-05-08] MEDS: FAMOTIDINE 20 MG/2 ML VIAL IV SCH ×2 (09:52→21:13)
[2020-05-08] MEDS: methylPREDNISolone SOD SUC 40 MG/1 ML VIAL IV SCH ×2 (09:53→21:11)
[2020-05-08] MEDS: ASCORBIC ACID 500 MG TABLET PO SCH ×2 (09:53→21:09)
[2020-05-08] MEDS: amLODIPine 10 MG TABLET PO SCH (09:53)
[2020-05-08] MEDS: OLMESARTAN 20 MG TABLET PO SCH (09:53)
[2020-05-08] MEDS: FLUTICASONE 50 MCG NASAL SPRAY 16 GM BOTTLE BOTH NARES SCH ×2 (09:53→21:18)
[2020-05-08] MEDS: ZINC GLUCONATE 50 MG TABLET PO SCH (09:54)
[2020-05-08] MEDS: CHOLECALCIFEROL 1,000 UNIT TABLET PO SCH (09:54)
[2020-05-08] MEDS: ALPRAZolam 0.25 MG TABLET PO PRN (21:09)
[2020-05-08] MEDS: INSULIN GLARGINE 100 UNIT/ML SUBCUT SCH (21:15)
[2020-05-09] MEDS: INSULIN REGULAR 100 UNIT/ML SUBCUT SCH ×4 (00:11→18:03)
[2020-05-09] MEDS: ALBUTEROL INHALER 18 GM INH SCH ×2 (00:12→06:38)
[2020-05-09 05:51] LABS: Basophils % 0.1 % (0.0-0.8); Hematocrit 25.9 VOL% (35.7-47.0); Hemoglobin 8.9 GM/DL (12.0-16.0); Immature Granulocytes % 4.8 %; Immature Granulocytes Absolute 0.61 #; Lymphocytes # 0.7 10*3/uL (1.4-4.0); Lymphocytes % 5.1 % (21.3-54.2); Mean Corpuscular HGB Conc 34.4 GM/DL (32-36); Mean Corpuscular Volume 88.4 FL (87-102); Monocytes % 5.1 % (1.7-12.7); NRBC # 0.06 10*3/uL; Neutrophils % 84.9 % (38.7-73.9); Platelet Count 165 T/CUMM (130-400); Red Blood Count 2.93 MC/CUMM (3.8-5.5); Red Cell Distribution Width 14.1 % (9.3-17.3); White Blood Count 12.7 T/CUMM (4-12)
[2020-05-09 06:15] LABS: Albumin 2.3 G/DL (3.4-5.0); Bilirubin,Total 0.7 MG/DL (0.2-1.0); Calcium 8.2 MG/DL (8.5-10.1); Osmolality,Calculated 287.3 MOS/KG (273-304); Potassium 4.8 MMOL/L (3.5-5.1); Total Protein 5.2 G/DL (6.4-8.3)
[2020-05-09 07:39] LABS: Band Neutrophils 3 % (0-10); Lymphocytes 10 % (20-55); Myelocytes 2 %; Segmented Neutrophils 79 % (50-85); Total Cells Counted 100
[2020-05-09 07:40] LABS: Hypochromasia 1+; Microcytosis 1+; Platelet Estimate Adequate
[2020-05-09] MEDS: CHOLECALCIFEROL 1,000 UNIT TABLET PO SCH (08:57)
[2020-05-09] MEDS: ZINC GLUCONATE 50 MG TABLET PO SCH (08:57)
[2020-05-09] MEDS: ASCORBIC ACID 500 MG TABLET PO SCH ×2 (08:57→20:05)
[2020-05-09] MEDS: methylPREDNISolone SOD SUC 40 MG/1 ML VIAL IV SCH ×2 (08:58→20:04)
[2020-05-09] MEDS: FLUTICASONE 50 MCG NASAL SPRAY 16 GM BOTTLE BOTH NARES SCH ×2 (08:58→20:05)
[2020-05-09] MEDS: OLMESARTAN 20 MG TABLET PO SCH ×2 (08:58→09:14)
[2020-05-09] MEDS: FAMOTIDINE 20 MG/2 ML VIAL IV SCH ×2 (08:58→20:05)
[2020-05-09] MEDS: amLODIPine 10 MG TABLET PO SCH ×2 (09:00→09:14)
[2020-05-09] MEDS: INSULIN GLARGINE 100 UNIT/ML SUBCUT SCH (20:03)
[2020-05-10] MEDS: INSULIN REGULAR 100 UNIT/ML SUBCUT SCH ×4 (00:15→18:04)
[2020-05-10 06:06] LABS: Basophils % 0.2 % (0.0-0.8); Calcium 8.4 MG/DL (8.5-10.1); Hematocrit 28.8 VOL% (35.7-47.0); Hemoglobin 9.4 GM/DL (12.0-16.0); Immature Granulocytes Absolute 0.52 #; Lymphocytes # 0.7 10*3/uL (1.4-4.0); Lymphocytes % 6.4 % (21.3-54.2); Mean Corpuscular HGB Conc 32.6 GM/DL (32-36); Mean Corpuscular Volume 90.6 FL (87-102); Mean Platelet Volume 9.9 FL (9.6-12.0); Monocytes % 4.7 % (1.7-12.7); NRBC # 0.03 10*3/uL; Neutrophils % 83.7 % (38.7-73.9); Osmolality,Calculated 286.3 MOS/KG (273-304); Platelet Count 164 T/CUMM (130-400); Potassium 4.7 MMOL/L (3.5-5.1); Red Blood Count 3.18 MC/CUMM (3.8-5.5); Red Cell Distribution Width 14.1 % (9.3-17.3); White Blood Count 10.5 T/CUMM (4-12)
[2020-05-10 07:11] LABS: Lymphocytes 6 % (20-55); Platelet Estimate Adequate; Polychromasia Slight; Segmented Neutrophils 83 % (50-85); Total Cells Counted 100
[2020-05-10] MEDS: FLUTICASONE 50 MCG NASAL SPRAY 16 GM BOTTLE BOTH NARES SCH ×2 (09:18→20:08)
[2020-05-10] MEDS: amLODIPine 10 MG TABLET PO SCH (09:18)
[2020-05-10] MEDS: methylPREDNISolone SOD SUC 40 MG/1 ML VIAL IV SCH ×2 (09:18→20:22)
[2020-05-10] MEDS: CHOLECALCIFEROL 1,000 UNIT TABLET PO SCH (09:18)
[2020-05-10] MEDS: FAMOTIDINE 20 MG/2 ML VIAL IV SCH ×2 (09:23→20:21)
[2020-05-10] MEDS: ASCORBIC ACID 500 MG TABLET PO SCH ×2 (09:24→20:22)
[2020-05-10] MEDS: OLMESARTAN 20 MG TABLET PO SCH (09:24)
[2020-05-10] MEDS: ZINC GLUCONATE 50 MG TABLET PO SCH (09:25)
[2020-05-10] MEDS: ALBUTEROL INHALER 18 GM INH SCH ×3 (11:33→18:04)
[2020-05-10] MEDS: INSULIN GLARGINE 100 UNIT/ML SUBCUT SCH (20:22)
[2020-05-11] MEDS: INSULIN REGULAR 100 UNIT/ML SUBCUT SCH ×4 (00:31→17:55)
[2020-05-11] MEDS: ASCORBIC ACID 500 MG TABLET PO SCH ×2 (08:15→21:00)
[2020-05-11] MEDS: amLODIPine 10 MG TABLET PO SCH (08:15)
[2020-05-11] MEDS: CHOLECALCIFEROL 1,000 UNIT TABLET PO SCH (08:15)
[2020-05-11] MEDS: ZINC GLUCONATE 50 MG TABLET PO SCH (08:16)
[2020-05-11] MEDS: FAMOTIDINE 20 MG/2 ML VIAL IV SCH ×2 (08:16→21:01)
[2020-05-11] MEDS: ALBUTEROL INHALER 18 GM INH SCH ×3 (08:16→18:07)
[2020-05-11] MEDS: OLMESARTAN 20 MG TABLET PO SCH (08:17)
[2020-05-11] MEDS: FLUTICASONE 50 MCG NASAL SPRAY 16 GM BOTTLE BOTH NARES SCH ×2 (08:17→22:09)
[2020-05-11] MEDS: methylPREDNISolone SOD SUC 40 MG/1 ML VIAL IV SCH (08:23)
[2020-05-11] MEDS ORDERED: INFLUENZA VIRUS VACCINE 0.5 ML SYRINGE IM ONE (12:00)
[2020-05-11] MEDS: INSULIN GLARGINE 100 UNIT/ML SUBCUT SCH (21:01)
[2020-05-12] MEDS: INSULIN REGULAR 100 UNIT/ML SUBCUT SCH ×4 (00:05→17:53)
[2020-05-12 05:31] LABS: Basophils % 0.1 % (0.0-0.8); Eosinophils % 0.5 % (0.00-10.9); Hematocrit 29.7 VOL% (35.7-47.0); Hemoglobin 9.9 GM/DL (12.0-16.0); Immature Granulocytes % 1.1 %; Immature Granulocytes Absolute 0.09 #; Lymphocytes # 1.2 10*3/uL (1.4-4.0); Lymphocytes % 13.7 % (21.3-54.2); Mean Corpuscular HGB Conc 33.3 GM/DL (32-36); Mean Platelet Volume 9.1 FL (9.6-12.0); Monocytes % 3.5 % (1.7-12.7); NRBC # 0.03 10*3/uL; Neutrophils % 81.1 % (38.7-73.9); Platelet Count 140 T/CUMM (130-400); Red Cell Distribution Width 14.6 % (9.3-17.3); White Blood Count 8.5 T/CUMM (4-12)
[2020-05-12] MEDS: ALBUTEROL INHALER 18 GM INH SCH ×3 (08:37→08:42)
[2020-05-12] MEDS: OLMESARTAN 20 MG TABLET PO SCH (08:38)
[2020-05-12] MEDS: CHOLECALCIFEROL 1,000 UNIT TABLET PO SCH (08:38)
[2020-05-12] MEDS: amLODIPine 10 MG TABLET PO SCH (08:38)
[2020-05-12] MEDS: FAMOTIDINE 20 MG/2 ML VIAL IV SCH (08:38)
[2020-05-12] MEDS: ZINC GLUCONATE 50 MG TABLET PO SCH (08:38)
[2020-05-12] MEDS: ASCORBIC ACID 500 MG TABLET PO SCH ×2 (08:38→20:24)
[2020-05-12] MEDS: FLUTICASONE 50 MCG NASAL SPRAY 16 GM BOTTLE BOTH NARES SCH ×2 (08:39→20:26)
[2020-05-12] MEDS: methylPREDNISolone SOD SUC 40 MG/1 ML VIAL IV SCH (08:39)
[2020-05-12] MEDS: ALBUTEROL 2.5 MG/3 ML NEB RESP TX SCH ×3 (16:25→20:50)
[2020-05-12] MEDS: INSULIN GLARGINE 100 UNIT/ML SUBCUT SCH (20:25)
[2020-05-13] MEDS: INSULIN REGULAR 100 UNIT/ML SUBCUT SCH ×4 (00:15→18:26)
[2020-05-13] MEDS: ALBUTEROL 2.5 MG/3 ML NEB RESP TX SCH ×4 (00:27→19:15)
[2020-05-13] MEDS: CHOLECALCIFEROL 1,000 UNIT TABLET PO SCH (08:52)
[2020-05-13] MEDS: ASCORBIC ACID 500 MG TABLET PO SCH ×2 (08:53→20:42)
[2020-05-13] MEDS: ZINC GLUCONATE 50 MG TABLET PO SCH (08:53)
[2020-05-13] MEDS: methylPREDNISolone SOD SUC 40 MG/1 ML VIAL IV SCH (08:53)
[2020-05-13] MEDS: OLMESARTAN 20 MG TABLET PO SCH (08:53)
[2020-05-13] MEDS: amLODIPine 10 MG TABLET PO SCH (08:53)
[2020-05-13] MEDS: FLUTICASONE 50 MCG NASAL SPRAY 16 GM BOTTLE BOTH NARES SCH ×2 (09:56→23:47)
[2020-05-13] MEDS: INSULIN GLARGINE 100 UNIT/ML SUBCUT SCH (21:00)
[2020-05-14] MEDS: INSULIN REGULAR 100 UNIT/ML SUBCUT SCH ×4 (01:02→18:01)
[2020-05-14] MEDS: ALBUTEROL 2.5 MG/3 ML NEB RESP TX SCH ×4 (07:10→20:05)
[2020-05-14] MEDS: methylPREDNISolone SOD SUC 40 MG/1 ML VIAL IV SCH (09:50)
[2020-05-14] MEDS: CHOLECALCIFEROL 1,000 UNIT TABLET PO SCH (09:52)
[2020-05-14] MEDS: ZINC GLUCONATE 50 MG TABLET PO SCH (09:52)
[2020-05-14] MEDS: ASCORBIC ACID 500 MG TABLET PO SCH ×2 (09:52→21:26)
[2020-05-14] MEDS: OLMESARTAN 20 MG TABLET PO SCH (09:52)
[2020-05-14] MEDS: FLUTICASONE 50 MCG NASAL SPRAY 16 GM BOTTLE BOTH NARES SCH ×2 (09:56→21:26)
[2020-05-14] MEDS: ALBUTEROL INHALER 18 GM INH SCH (10:44)
[2020-05-14] MEDS: amLODIPine 10 MG TABLET PO SCH (10:44)
[2020-05-14] MEDS: INSULIN GLARGINE 100 UNIT/ML SUBCUT SCH (21:26)
[2020-05-15] MEDS: INSULIN REGULAR 100 UNIT/ML SUBCUT SCH ×4 (00:38→18:33)
[2020-05-15] MEDS: ALBUTEROL 2.5 MG/3 ML NEB RESP TX SCH ×4 (01:39→20:25)
[2020-05-15] MEDS: ASCORBIC ACID 500 MG TABLET PO SCH ×2 (09:05→20:52)
[2020-05-15] MEDS: methylPREDNISolone SOD SUC 40 MG/1 ML VIAL IV SCH (09:05)
[2020-05-15] MEDS: CHOLECALCIFEROL 1,000 UNIT TABLET PO SCH (09:06)
[2020-05-15] MEDS: ZINC GLUCONATE 50 MG TABLET PO SCH (09:06)
[2020-05-15] MEDS: OLMESARTAN 20 MG TABLET PO SCH (09:06)
[2020-05-15] MEDS: FLUTICASONE 50 MCG NASAL SPRAY 16 GM BOTTLE BOTH NARES SCH ×2 (09:07→20:52)
[2020-05-15] MEDS: INSULIN GLARGINE 100 UNIT/ML SUBCUT SCH (20:50)
[2020-05-16] MEDS: INSULIN REGULAR 100 UNIT/ML SUBCUT SCH ×2 (00:59→08:06)
[2020-05-16] MEDS: ALBUTEROL 2.5 MG/3 ML NEB RESP TX SCH ×2 (01:45→09:26)
[2020-05-16 08:19] VITALS: BP 115/54
[2020-05-16] MEDS: ZINC GLUCONATE 50 MG TABLET PO SCH (08:44)
[2020-05-16] MEDS: ASCORBIC ACID 500 MG TABLET PO SCH (08:44)
[2020-05-16] MEDS: OLMESARTAN 20 MG TABLET PO SCH (08:44)
[2020-05-16] MEDS: CHOLECALCIFEROL 1,000 UNIT TABLET PO SCH (08:45)
[2020-05-16] MEDS: ACETAMINOPHEN 325 MG TABLET PO PRN (08:48)
[2020-05-16] MEDS: FLUTICASONE 50 MCG NASAL SPRAY 16 GM BOTTLE BOTH NARES SCH (08:58)
[2020-05-16] MEDS ORDERED: predniSONE 20 MG TABLET PO ONE (09:00)
== END 2020-05-16 09:26 | disposition swing bed (61) | DRG 981 ==
LOC: EDBD → EDUNIT# → N.ED 06:26 → SUATTDRO 07:04 → N.EDINP 07:19 → SUATTDRO 07:20 → N.CC 07:51 → N.5E 05-08 14:12
PROVIDERS: ADMIT Internal Medicine; ATTEND Internal Medicine Geriatric Medicine